=== PATIENT | male | born 1960 | race Hispanic/Latino ===

== ENCOUNTER 2024-09-29 14:04 | Emergency (ER) | payer OTHER ==
[~2024-09-29] VITALS: Ht 165.1 cm; Wt 86.7 kg
[~2024-09-29 14:04] MED LIST: ACET-2247 PO; AMOX500T2 PO; BIFI4CAP2 PO; METR500T PO; OMEP20TA20 PO
[2024-09-29 14:42] LABS: IMMATURE GRANULOCYTE ABSOLUTE 0.02 K/uL (0-1); NUCLEATED RED BLOOD CELLS 0.0 % (0.0-0.19); PLATELET COUNT (AUTO) 194 K/uL (130-400); RED BLOOD CELL COUNT(AUTO) 5.07 MIL/uL (4.50-6.20); RED CELL DISTRIBUTION WIDTH 13.1 % (11.0-15.5); WHITE BLOOD COUNT (AUTO) 6.4 K/uL (4.8-10.8)
[2024-09-29] MEDS: MAG/ALUM/SIMETH 30 ML UDCUP PO ONE (14:50)
[2024-09-29] MEDS: ASPIRIN 325MG EC TAB PO ONE (14:50)
[2024-09-29 14:55] LABS: CREATININE 0.9 mg/dL (0.5-1.3); GLOMERULAR FILTR. RATE CALC 95 mL/min (>90); GLUCOSE,RANDOM 110 mg/dL (70-105); SODIUM SERUM 143 mmol/L (136-145); UREA NITROGEN, BLOOD 20 mg/dL (7-18)
[2024-09-29 15:11] LABS: ASPARTATE AMINOTRANSFERASE 25 U/L (10-37); TOTAL PROTEIN, SERUM 8.0 g/dL (6.0-8.3)
--- NOTE | 2024-09-29 15:19 | EKG ---
[facility] Test Date: 2024-09-29 Test Time: 14:10:27 Pat Name: CORNELIO GIBSON Department: [facility] Room: Gender: Chip Person: [facility] : 1960 Requested By: SOLANGE PATEL Order Number: [id number] Reading MD: Melvi Prasad Measurements Intervals Opp Rate: 55 P: 51 CT: 152 QRS: 33 QRSD: 83 T: 13 QT: 400 QTc: 384 Interpretive Statements Sinus rhythm Compared to ECG 09/11/2014 04:08:03 Early repolarization no longer present Sinus bradycardia no longer present Electronically Signed On 10-01-2024 14:14:20 CDT by Melvi Prasad Please click the below link to view image of tracing.
--- NOTE | 2024-09-29 15:54 | HMCIMG ---
EXAM: CR Chest, 1 View. CLINICAL HISTORY: cp COMPARISON: Radiograph dated September 09, 2014 FINDINGS: LUNGS: The lungs show no infiltrate or other acute finding. PLEURAL SPACES: No evidence of pleural effusion or pneumothorax. MEDIASTINUM: Cardiac size and mediastinal contours within normal limits. BONES: No aggressive appearing osseous lesion seen. IMPRESSION: No acute cardiopulmonary pathology is evident. /Yolyn
[2024-09-29] MEDS: NITROGLYCERIN 1GM OINT 1 INCH/1GM TD STA (16:55)
[2024-09-29] MEDS ORDERED: NITROGLYCERIN 30 GM TUBE TD ONE (17:00)
--- NOTE | 2024-09-29 18:30 | NUR ---
PT STATES HE DOES NOT WANT TO STAY IN THE HOSPITAL. PT STATES HIS SON IS BEING ADMITTED AND HIS IS TAKING CARE OF HIM. PT STATES HE WOULD RATHER BE WITH HIS . PT WAS ADVISED THAT HE WOULD BE LEAVING AGAINST MEDICAL ADVICE MD DOES NOT FEEL COMFORTABLE DISCHARGING HIM HE IS STILL REPORTING PAIN DESPITE MEDICATION. PT STATES HE UNDERSTANDS BUT WILL BE IN THE HOSPITAL IF SYMPTOMS WORSEN. PT WAS ADVISED TO ATTEND TO ED IF SYMPTOMS PERSIST OR WORSEN.
--- NOTE | 2024-09-29 18:41 | ERN ---
ED Note History of Present Illness Stated Complaint: CP X ONE WEEK Chief Complaint: Chest Pain Time Seen by MD: 14:15 Dictation: 64-year-old male presenting to the emergency department for intermittent chest pain over the past few days worse this morning patient also felt nauseated, patient reports it as dull intermittent Allergies: Coded Allergies: No Known Drug Allergies (Verified Allergy, Unknown, 09/09/14) Home Meds Active Scripts Bifidobacterium Infantis (Align) 4 Mg Capsule, 1 CAP PO [id number], #30 CAP 3 Refills Prov:TRACI MENDOZA MD 08/08/16 Metronidazole (Flagyl) 500 Mg Tablet, 500 MG PO TIDMEALS, #63 TAB begin this AFTER finishing the amoxicillin Prov:TRACI MENDOZA MD 08/08/16 Amoxicillin (Amoxicillin) 500 Mg Tablet, 500 MG PO TID, #63 TAB Prov:TRACI MENDOZA MD 08/08/16 Omeprazole (Omeprazole) 20 Mg Tablet.dr, 20 MG PO ACBKFST, #30 TAB 1 Refill Prov:TRACI MENDOZA MD 08/08/16 Reported Medications Acetaminophen (Tylenol) 325 Mg Tablet, 650 MG PO Q8H PRN for PAIN LEVEL 5 TO 10, TAB 08/07/16 Past Medical History Past Medical History: Prostatitis Surgical History: Cholecystectomy Review of System Dictation Constitutional: Negative for fever,chills, and weight loss Eyes: Negative for injury, pain,redness, and discharge ENT: Negative for injury,pain or swelling Cardiovascular: Per hpi Respiratory: Negative for shortness of breath, cough, and wheezing, Abdomen/GI: Per HPI Back: Negative for injury and pain : Negative for injury, bleeding and discharge MS/Extremity: Negative for injury and deformity Skin: Negative for rash, and discoloration Neuro: Negative for headache, weakness, numbness, tingling, and seizure Psych: Negative for suicide ideation, homicidal ideation, and hallucinations Initial Vital Sign VS Vital Signs Date Time Temp Pulse Resp B/P (MAP) Pulse Ox O2 Delivery O2 Flow Rate FiO2 09/29/24 14:07 98.2 57 16 159/77 99 Room Air 0 09/29/24 14:40 21 Physical Exam Dictation General: awake, alert, NAD Head/Face: Normocephalic, atraumatic Eyes: PERRL, EOMI, vision at baseline ENT: oral cavity clear, TMs clear, no signs of infection Neck: Trachea midline, supple, no nuchal rigidity Cardiovascular: RRR, normal S1/S2, No MRGs, no JVD Respiratory: CTAB, no respiratory distress, No rales or wheezes Abdomen: Soft, non-tender, non-distended, normal bowel sounds, no guarding or rebound. Skin: Warm, dry, normal turgor, no rash MS/Extremity: Pulses equal, no cyanosis, neurovascular intact, FROM Neuro: COAx4, GCS 15, strength 5/5, CN 2-12 intact, normal cerebellar exam, normal gait, Psych: Normal behavior, mood, and affect normal Results (Laboratory/Radiology) Laboratory/Radiology Laboratory Tests Test 09/29/24 14:34 White Blood Count 6.4 K/uL (4.8-10.8) Red Blood Count 5.07 MIL/uL (4.50-6.20) Hemoglobin 14.9 g/dL (14.0-18.0) Hematocrit 44.6 % (42-54) Mean Corpuscular Volume 88.0 fL (79-99) Mean Corpuscular Hemoglobin 29.4 pg (27.0-33.0) Mean Corpuscular Hemoglobin Concent 33.4 g/dL (32.0-36.0) Red Cell Distribution Width 13.1 % (11.0-15.5) Platelet Count 194 K/uL (130-400) Mean Platelet Volume 11.3 fL (7.5-10.5) H Immature Granulocyte % (Auto) 0.3 % (0-1) Neutrophils (%) (Auto) 43.2 % (40.0-77.0) Lymphocytes (%) (Auto) 41.8 % (21.0-51.0) Monocytes (%) (Auto) 10.7 % (3.0-13.0) Eosinophils (%) (Auto) 3.8 % (0.0-8.0) Basophils (%) (Auto) 0.2 % (0.0-5.0) Neutrophils # (Auto) 2.8 K/uL (1.8-7.7) Lymphocytes # (Auto) 2.7 K/uL (1.0-4.8) Monocytes # (Auto) 0.7 K/uL (0.1-1.0) Eosinophils # (Auto) 0.24 K/uL (0.00-0.70) Basophils # (Auto) 0.01 K/uL (0.00-0.20) Absolute Immature Granulocyte (auto 0.02 K/uL (0-1) Nucleated Red Blood Cells 0.0 % (0.0-0.19) Sodium Level 143 mmol/L (136-145) Potassium Level 4.2 mmol/L (3.5-5.1) Chloride Level 105 mmol/L (101-111) Carbon Dioxide Level 29 mmol/L (21-32) Blood Urea Nitrogen 20 mg/dL (7-18) H Creatinine 0.9 mg/dL (0.5-1.3) Glomerular Filtration Rate Calc 95 mL/min (>90) Random Glucose 110 mg/dL (70-105) H Total Calcium 9.4 mg/dL (8.5-10.1) Total Bilirubin 0.3 mg/dL (0.2-1.0) Direct Bilirubin < 0.1 mg/dL (0.0-0.3) Aspartate Amino Transf (AST/SGOT) 25 U/L (10-37) Alanine Aminotransferase (ALT/SGPT) 36 U/L (12-78) Alkaline Phosphatase 65 U/L (50-136) Troponin I High Sensitivity 23 ng/L (4-75) Total Protein 8.0 g/dL (6.0-8.3) Albumin 3.8 g/dL (3.5-5.0) Lipase 88 U/L (16-77) H Labs Reviewed?: Yes EKG: (+) NSR, (+) rhythm, (+) QRS, (+) nonspecific ST T wave chg, (+) nonspecific ST T wave chg ED Course ED Course Orders Procedure Category Date Status Time 12 Lead Ekg Tracing- EKG 09/29/24 Complete Technical 14:17 Basic Metabolic Panel LAB 09/29/24 Complete 14:17 Cbc With Differential LAB 09/29/24 Complete 14:17 Hepatic Function Panel LAB 09/29/24 Complete 14:17 Lipase LAB 09/29/24 Complete 14:17 Troponin I High LAB 09/29/24 Complete Sensitivity 14:17 Chest 1vw RAD 09/29/24 Resulted 14:17 Mag/Alum/Simeth 30ml PHA 09/29/24 Complete (Maalox Plus 30ml) 15:00 Aspirin 325mg Ec Tab PHA 09/29/24 Complete (Aspirin 325mg Ec T 15:00 Morphine 4mg Syg PHA 09/29/24 Complete (Morphine 4mg Syg) 17:00 Nitroglycerin PHA 09/29/24 Complete (Nitro-Bid) 17:00 Nitroglycerin 1gm PHA 09/29/24 Complete Oint (Nitroglycerin 1g 16:50 Troponin I High LAB 09/29/24 Logged Sensitivity 18:14 Current Medications Medications (Trade) Dose Ordered Sig/Alyce Route PRN Reason Start Time Stop Time Status Last Admin Dose Admin Al Hydroxide/Mg Hydroxide (MAALox PLUS 30ML) 30 ml ONCE ONCE PO 09/29/24 15:00 09/29/24 15:01 DC 09/29/24 14:50 Aspirin (Aspirin 325mg Ec Tab) 325 mg ONCE ONCE PO 09/29/24 15:00 09/29/24 15:01 DC 09/29/24 14:50 Morphine Sulfate (morPHINE 4MG SYG) 4 mg ONCE ONCE IVP 09/29/24 17:00 09/29/24 17:01 DC 09/29/24 16:55 Nitroglycerin (Nitro-Bid) 0.5 gm ONCE ONCE TD 09/29/24 17:00 09/29/24 16:51 DC Nitroglycerin (Nitroglycerin 1gm Oint) 0.5 inch ONCE STAT TD 09/29/24 16:50 09/29/24 16:51 DC 09/29/24 16:55 Vital Signs Date Time Temp Pulse Resp B/P (MAP) Pulse Ox O2 Delivery O2 Flow Rate FiO2 09/29/24 18:00 98.2 56 18 131/64 99 Room Air* 0 21 09/29/24 17:00 98.2 56 18 166/90 99 Room Air* 0 09/29/24 15:30 98.2 56 18 167/82 99 Room Air* 0 09/29/24 14:40 59 18 162/89 98 Room Air* 0 09/29/24 14:07 98.2 57 16 159/77 99 Room Air 0 Medical Decision Making MDM EKG reviewed and interpreted by me, no STEMI or STEMI equivalent 64-year-old male with chest pain intermittent reports that he is still having discomfort I advised to have the patient admitted for further care and evaluation repeat troponin additional workup however patient refused and wants to go home against medical advice patient was given risks and benefits of admission and in layman's terms and understood we will return if worse or if he changes his mind about care Heart score three, EKG chest x-ray laboratory values were reviewed and interpreted by me independently. DX & DISP Disposition: AMA Departure Impression: Primary Impression: Chest pain Condition: Stable Referrals: DAYANARA RIVERS MD (PCP) SOLANGE PATEL MD Sep 29, 2024 18:41
--- NOTE | 2024-09-29 18:45 | NUR ---
DR. PATEL WAS ADVISED THAT PT WAS GIVEN AMA PAPEROWORK TO SIGN AND CHOOSE TO LEAVE BUT REPORTED THAT HE WOULD REMAIN IN HOSPITAL HIS FAMILY IS REMAINING IN THE HOSPITAL.
[2024-09-29 18:57] VITALS: BP 126/67; PULSE 61; RESP 18; TEMP 98.3; O2SAT 99
== END 2024-09-29 18:50 | disposition left against medical advice (07) ==
LOC: EDH 14:04
DX: R07.89 Other chest pain (principal); Z90.49 Acquired absence of other specified parts of digestive tract; Z79.899 Other long term (current) drug therapy
CPT/HCPCS: 99285; 96374; 71045; 80076; 84484; 80048; 83690; 85025; 36415; 93005; J2270